=== PATIENT | female | born 1995 | race Hispanic/Latino ===

== ENCOUNTER 2025-03-25 11:51 | Inpatient (IN) | payer MEDICAID, OTHER ==
[2025-03-25 13:10] LABS: Protein, Urine Random Quant 12.0 mg/dL (1-14)
[2025-03-25 13:59] LABS: ALT (SGPT) 62 U/L (Less than 34); AST (SGOT) 80 U/L (11-34); Albumin 2.7 g/dL (3.1-4.5); Alkaline Phosphatase 186 U/L (40-110); Anion Gap 11 mmol/L (10-20); BUN (Urea Nitrogen) 6 mg/dL (7.0-18.7); Bilirubin, Total 0.3 mg/dL (0.3-1.2); Calc. Creatinine Clearance 0 mL/min (70-130); Calcium 8.8 mg/dL (7.8-10.44); Carbon Dioxide 21 mmol/L (22-29); Chloride 110 mmol/L (98-107); Globulin 3.4 g/dL (2.4-3.5); Glucose 69 mg/dL (70-105); Potassium 3.9 mmol/L (3.5-5.1); Sodium 138 mmol/L (136-145)
[2025-03-25 14:25] LABS: #Basophils 0.06 10x3/uL (0.0-0.2); #Eosinophils 0.07 10x3/uL (0.0-0.5); #Monocytes 0.66 10x3/uL (0.0-1.1); #Neutrophils 4.73 10x3/uL (1.5-8.4); %Basophils 0.8 % (0.0-2.0); %Eosinophils 0.9 % (0.0-6.0); %Lymphocytes 25.9 % (18.0-47.0); %Monocytes 8.6 % (0.0-10.0); %Neutrophils 61.3 % (40.0-75.0); Hematocrit 40.4 % (34.9-44.5); Hemoglobin 13.0 g/dL (12.0-15.5); Mean Corpuscular Hemoglobin 27.3 pg (27.0-33.0); Mean Corpuscular Volume 84.9 fL (81.6-98.3); Platelet Count 110 10x3/uL (150-450); Red Blood Cell (RBC) Count 4.76 10x6/uL (3.90-5.03); White Blood Cell (WBC) Count 7.71 10x3/uL (3.5-10.5)
[2025-03-25] MEDS ORDERED: Famotidine/PF 20 mg/2ml Vial SLOW IVP PRN (14:33)
[2025-03-25] MEDS ORDERED: Bicitra 30 ML UDCUP PO PRN (14:33)
[2025-03-25] MEDS ORDERED: Ondansetron PF 4 MG/2 ML Vial IVP PRN ×8 (14:34→19:00)
[2025-03-25] MEDS ORDERED: hydrALAZINE 20 MG/ML VIAL SLOW IVP PRN ×2 (14:34→19:56)
[2025-03-25] MEDS ORDERED: Diphenoxylate HCl/Atropine Tablet PO PRN (14:35)
[2025-03-25] MEDS ORDERED: Carboprost 250 MCG/ML AMP IM PRN (14:35)
[2025-03-25] MEDS ORDERED: Methylergonovine 0.2 MG/ML VIAL IM PRN (14:35)
[2025-03-25] MEDS ORDERED: Tranexamic Acid 1,000 MG/10 ML VIAL IVP PRN (14:35)
[2025-03-25] MEDS ORDERED: Calcium Gluc 4.6 MEQ/10 ML (100 MG/ML) SLOW IVP PRN ×2 (14:40→19:56)
[2025-03-25] MEDS ORDERED: Oxytocin 30 units/NS 500 ML 500 ML IV SCH ×2 (14:45→18:00)
[2025-03-25] MEDS: Magnesium Sulfate 20 gm/500 ml 20 GM/500 ML BAG ONE (14:50)
[2025-03-25 15:30] LABS: Hep B Surf Ag - L&D Non-Reactive S/CO (NonReactive)
[2025-03-25 15:31] LABS: Syphilis Antibody Index 0.05 S/CO (<1.00 Non-Reactive)
[2025-03-25] MEDS ORDERED: diphenhydrAMINE 50 MG/ML VIAL IVP PRN ×3 (16:31→19:00)
[2025-03-25] MEDS ORDERED: Meperidine HCl/PF 25 MG (1 mL) VIAL SLOW IVP PRN ×3 (16:31→18:59)
[2025-03-25] MEDS ORDERED: Ketorolac Tromethamine 30 MG (1 mL) VIAL IVP PRN ×2 (16:31→17:44)
[2025-03-25] MEDS ORDERED: Communication Order-Pharmacy FS SCH ×3 (16:45→19:00)
[2025-03-25] MEDS ORDERED: Ketorolac Tromethamine 30 MG (1 mL) VIAL IVP SCH ×3 (16:45→19:00)
[2025-03-25] MEDS ORDERED: HYDROmorphone 0.5 MG/0.5 ML SYRINGE SLOW IVP PRN (17:44)
[2025-03-25] MEDS: Diphenoxylate HCl/Atropine Tablet PO SCH (17:44)
[2025-03-25] MEDS ORDERED: Lanolin Ointment 7 GM TUBE TOP PRN (17:57)
[2025-03-25 18:39] VITALS: BMI 36.4
[2025-03-25] MEDS: hydrALAZINE 20 MG/ML VIAL SLOW IVP PRN (18:51)
[2025-03-25] MEDS: NIFEdipine XL 30 MG ER.TAB PO SCH (20:38)
[2025-03-25] MEDS: Ondansetron PF 4 MG/2 ML Vial ONE (20:44)
[2025-03-25] MEDS ORDERED: Boostrix 0.5 ML (Tdap) VIAL (>/=7 yrs of age) IM ONE (21:00)
[2025-03-26 03:58] LABS: Platelet Count 116 10x3/uL (150-450)
[2025-03-26 03:59] LABS: Hematocrit 35.4 % (34.9-44.5); Hemoglobin 11.8 g/dL (12.0-15.5); Mean Corpuscular Hemoglobin 28.2 pg (27.0-33.0); Mean Corpuscular Volume 84.5 fL (81.6-98.3); Red Blood Cell (RBC) Count 4.19 10x6/uL (3.90-5.03); White Blood Cell (WBC) Count 11.58 10x3/uL (3.5-10.5)
[2025-03-26 07:23] LABS: ALT (SGPT) 56 U/L (Less than 34); AST (SGOT) 85 U/L (11-34); Albumin 2.2 g/dL (3.1-4.5); Alkaline Phosphatase 151 U/L (40-110); Anion Gap 15 mmol/L (10-20); BUN (Urea Nitrogen) 5 mg/dL (7.0-18.7); Bilirubin, Total 0.2 mg/dL (0.3-1.2); Calc. Creatinine Clearance 182 mL/min (70-130); Calcium 7.7 mg/dL (7.8-10.44); Carbon Dioxide 21 mmol/L (22-29); Chloride 108 mmol/L (98-107); Globulin 3.0 g/dL (2.4-3.5); Glucose 84 mg/dL (70-105); Potassium 3.8 mmol/L (3.5-5.1); Sodium 140 mmol/L (136-145)
[2025-03-26] MEDS: NIFEdipine XL 30 MG ER.TAB PO SCH ×2 (08:49→15:01)
[2025-03-26] MEDS ORDERED: NIFEdipine XL 30 MG ER.TAB PO SCH (09:00)
[2025-03-26] MEDS: Magnesium Sulfate 20 gm/500 ml 20 GM/500 ML BAG IVPB SCH (10:05)
[2025-03-26] MEDS: Ketorolac Tromethamine 30 MG (1 mL) VIAL IVP PRN (14:21)
[2025-03-26] MEDS: Simethicone Chewable 80 MG TAB PO PRN (15:01)
[2025-03-26] MEDS: HYDROcodone/Acetaminophen 5/325 mg Tablet PO PRN (18:22)
[2025-03-26] MEDS: CEFAZOLIN 2 GM VIAL ONE (19:31)
[2025-03-26] MEDS: Phenylephrine 40 MG/NS 250 ML 250 ML ONE (19:31)
[2025-03-26] MEDS: Bupivacaine 0.75% W/DEXTROSE 8.25% 2 ML AMP ONE (19:32)
[2025-03-26] MEDS: Tranexamic Acid 1,000 MG/10 ML VIAL ONE (19:32)
[2025-03-26] MEDS: Erythromycin Base 0.5% Oint 1 GM TUBE ONE (19:32)
[2025-03-26] MEDS: Carboprost 250 MCG/ML AMP ONE (19:32)
[2025-03-26] MEDS: Hepatitis B Vaccine 10 MCG/0.5 ML SYR ONE (19:32)
[2025-03-26] MEDS: Ibuprofen 800 MG TAB PO SCH (20:56)
[2025-03-27] MEDS: NIFEdipine XL 90 MG ER.TAB PO SCH (09:21)
[2025-03-28] MEDS: Milk Of Magnesia 30 ML UDCUP PO PRN (09:49)
[2025-03-28] MEDS: Furosemide 20 MG (2 mL) VIAL SLOW IVP SCH (09:49)
[2025-03-28 17:06] VITALS: BP 136/86; TEMP 98.3
== END 2025-03-28 18:45 | disposition home or self-care (01) | DRG 788 ==
LOC: CSHLD/OP 11:51 → CSHLD 14:56 → CSHPP 03-26 17:39
PROVIDERS: ADMIT Family Medicine; ATTEND Family Medicine
PROC: 10D00Z1 Extraction of Products of Conception, Low, Open Approach (ICD-10-PCS; principal; 2025-03-25)
DX: O14.14 Severe pre-eclampsia complicating childbirth (principal); Z3A.36 36 weeks gestation of pregnancy; Z37.2 Twins, both liveborn; O30.033 Twin pregnancy, monochorionic/diamniotic, third trimester
CPT/HCPCS: 36415; 51702; 80053; 82570; 84156; 85025; 85027; 86780; 86850; 86900; 86901; 87340; 88307; 99285; J0360; J1885; J1940; J2274; J2550; J3475; J3490